=== PATIENT | female | born 1985 | race Two or more races ===

== ENCOUNTER 2017-01-21 09:29 | Inpatient (IN) | payer SELFPAY ==
[~2017-01-21] VITALS: Ht 149.9 cm; Wt 63.5 kg
[2017-01-21] MEDS ORDERED: OXYTOCIN 30 UNIT/500 ML PREMIX 500 ML IV PRN ×2 (12:30→18:00)
[2017-01-21] MEDS ORDERED: 0.9 % SODIUM CHLORIDE 10 ML DISP.SYRIN. IV PRN ×2 (12:30→18:00)
[2017-01-21] MEDS ORDERED: TERBUTALINE 1 MG/ML VIAL. SQ PRN (12:30)
[2017-01-21] MEDS ORDERED: LIDOCAINE 1% PF 30 ML VIAL. INJ PRN (12:30)
[2017-01-21] MEDS ORDERED: IBUPROFEN 600 MG TABLET. PO PRN (12:30)
[2017-01-21 12:35] VITALS: BP 107/71
[2017-01-21] MEDS: IV RINGERS,LACTATED 1000ML 1,000 ML IV SCH ×2 (13:45→16:39)
[2017-01-21 14:17] LABS: BASO # 0.1 x10^3/uL (0.0-0.2); BASO % 1 % (0-3); EOS % 0 % (0-3); HEMATOCRIT 37.6 % (36.0-47.0); HEMOGLOBIN 12.7 g/dL (12.0-15.5); LYMPH # 1.4 x10^3/uL (1.0-4.8); LYMPH % 14 % (24-48); MEAN CORPUSCULAR HEMOGLOBIN 28 pg (25-35); MEAN CORPUSCULAR HGB CONC 34 g/dL (31-37); MEAN CORPUSCULAR VOLUME 84 fL (79-100); MONO % 4 % (0-9); NEUT % 82 % (31-73); PLATELET COUNT 170 x10^3/uL (140-400); RED BLOOD COUNT 4.47 x10^6/uL (3.50-5.40); RED CELL DISTRIBUTION WIDTH 14.2 % (11.5-14.5); WHITE BLOOD COUNT 9.7 x10^3/uL (4.0-11.0)
--- NOTE | 2017-01-21 15:30 | PDOC1 ---
OB - History Hx of Present Care: Good Care Ultrasounds: Normal mid trimester US Obstetrical Complications: None Medical Complications: None Past Family/Social History * Past Medical, Surgical, Family and Obstetric Histories reviewed from chart. Rubella: Immune RPR/VDRL: Negative GBS Status: Negative HBsAG: Negative OB - Chief Complaint & HPI Date of Admission: Date of Admission: Jan 21, 2017 at 09:29 Chief Complaint/History : 3 Para: 2 EGA: 37 Reason for admission: active labor Admission Nurse Assessment Rev: Yes Problems: OB - Admission Exam Physical Exam Vitals: VS - Last 72 Hours, by Label Date Time Temp Pulse Resp B/P Pulse Ox O2 Delivery O2 Flow Rate FiO2 01/21/17 12:35 98.0 67 20 107/71 98.0 HEENT: Normal Heart: Regular Rate Lungs: Clear Abdomen: Gravid, Non tender, Soft Extremities: Edema Reflexes: Normal Cervical Dilatation: 3cm Effacement: 100% Station: -2 Membranes: Intact Heart Rate: Normal Accelerations: Accelerations Present Decelerations: No decelerations Contractions on Admission: 6-10 Minutes Apart Intensity: Mild Text A: 37 wks IUP Active labor P: Admit for labor management. DOROTHEA DONATO Jr, MD Jan 21, 2017 15:29
[2017-01-21] MEDS ORDERED: OXYTOCIN 30 UNIT/500 ML PREMIX 500 ML IV ONE (16:00)
[2017-01-21] MEDS ORDERED: L&D EPIDURAL CASSETTE 100 ML EP ONE (16:16)
[2017-01-21] MEDS ORDERED: ROPIVacaine 0.2% IN 0.9%NACL PF 40 MG/20 ML DISP.SYRIN. ONE ×2 (16:16→16:30)
[2017-01-21] MEDS ORDERED: ONDANSETRON PF 4 MG/2 ML VIAL. IV PRN (17:00)
[2017-01-21] MEDS ORDERED: EPHEDRINE PF IN SALINE 50 MG/5 ML DISP.SYRIN. IV PRN (17:00)
[2017-01-21] MEDS ORDERED: NALOXONE 0.4 MG/ML VIAL. IV PRN (17:00)
[2017-01-21] MEDS ORDERED: FENTANYL PF 100 MCG/2 ML VIAL. EPI ONE (17:15)
[2017-01-21] MEDS ORDERED: ROPIVacaine 0.2% PF 10 ML VIAL. EPI ONE (17:15)
--- NOTE | 2017-01-21 17:52 | PDOC ---
VAGINAL DELIVERY DATE DATE: 01/21/17 TIME: 17:50 : 3 Para: 3 EGA: 37 VAGINAL DELIVERY: VTX VACCUM ASSISTED: No PLACENTA: Spontaneous 8/9 SEX: Male WEIGHT Weight [3100 gm ] Nuchal Cord: No Amniotic Fluid: Clear PAIN: Epidural EPISIOTOMY: No EXTENSION: No EBL 300 ml COMPLICATIONS none CONDITION pt. stable ADDITIONAL NOTES true knot x 1 Signs of Intrauterine Infectio: None Shoulder Dystocia: No Problems: DOROTHEA DONATO Jr, MD Jan 21, 2017 17:52
[2017-01-21] MEDS ORDERED: ZOLPIDEM 5 MG TABLET. PO PRN (18:00)
[2017-01-21] MEDS ORDERED: SIMETHICONE 80 MG TAB.CHEW PO PRN (18:00)
[2017-01-21] MEDS ORDERED: MAGNESIUM HYDROXIDE 2,400 MG/30 ML ORAL.SUSP. PO PRN (18:00)
[2017-01-21] MEDS ORDERED: HYDROCORTISONE 1% TOPICAL OINTMENT 30GM TUBE. TP PRN (18:00)
[2017-01-21] MEDS ORDERED: DOCUSATE SODIUM 100 MG CAPSULE PO PRN (18:00)
[2017-01-21] MEDS ORDERED: IBUPROFEN 800 MG TABLET. PO PRN (18:00)
[2017-01-21] MEDS ORDERED: MAG HYDROX/ALUMINUM HYD/SIMETH 30 ML ORAL.SUSP PO PRN (18:00)
[2017-01-21] MEDS ORDERED: PHENYLEPH/MINERAL OIL/PETROLAT RECTAL OINTMENT 28GM TUBE. RC PRN (18:00)
[2017-01-21] MEDS ORDERED: DIPHENHYDRAMINE HCL 25 MG CAPSULE PO PRN (18:00)
[2017-01-21] MEDS ORDERED: MMR per PROTOCOL. MC PRN (18:00)
[2017-01-21] MEDS ORDERED: BENZOCAINE 20% TOPICAL AEROSOL SPRAY 57GM CAN. TP PRN (18:00)
[2017-01-21] MEDS ORDERED: ACETAMINOPHEN 325 MG TABLET. PO PRN (18:00)
[2017-01-21] MEDS ORDERED: OXYCODONE/APAP 5/325 TABLET. PO PRN (18:00)
[2017-01-21 21:31] VITALS: BP 98/58
[2017-01-21 22:03] VITALS: BP 110/53
[2017-01-22 00:56] VITALS: BP 104/66
[2017-01-22 05:37] VITALS: BP 99/64
[2017-01-22 06:11] LABS: BASO % 1 % (0-3); EOS % 1 % (0-3); HEMATOCRIT 39.1 % (36.0-47.0); HEMOGLOBIN 13.1 g/dL (12.0-15.5); LYMPH # 2.3 x10^3/uL (1.0-4.8); LYMPH % 24 % (24-48); MEAN CORPUSCULAR HEMOGLOBIN 29 pg (25-35); MEAN CORPUSCULAR HGB CONC 33 g/dL (31-37); MEAN CORPUSCULAR VOLUME 85 fL (79-100); MONO % 7 % (0-9); NEUT % 68 % (31-73); PLATELET COUNT 184 x10^3/uL (140-400); RED BLOOD COUNT 4.58 x10^6/uL (3.50-5.40); RED CELL DISTRIBUTION WIDTH 14.2 % (11.5-14.5); WHITE BLOOD COUNT 9.8 x10^3/uL (4.0-11.0)
[2017-01-22] MEDS ORDERED: FERROUS SULFATE 325 MG TABLET PO SCH (08:00)
[2017-01-22 10:30] VITALS: BP 105/72
--- NOTE | 2017-01-22 11:47 | PDOC ---
OB Progress Note Date of Service 01/22/17 Time of Evaluation 1145 Notes Pt. feeling well. Pain controlled. Breast feeding. Lochia minimal. Lab Laboratory Tests Test 01/21/17 13:40 01/22/17 05:50 White Blood Count 9.7x10^3/uL (4.0-11.0) 9.8x10^3/uL (4.0-11.0) Red Blood Count 4.47x10^6/uL (3.50-5.40) 4.58x10^6/uL (3.50-5.40) Hemoglobin 12.7g/dL (12.0-15.5) 13.1g/dL (12.0-15.5) Hematocrit 37.6% (36.0-47.0) 39.1% (36.0-47.0) Mean Corpuscular Volume 84fL (79-100) 85fL (79-100) Mean Corpuscular Hemoglobin 28pg (25-35) 29pg (25-35) Mean Corpuscular Hemoglobin Concent 34g/dL (31-37) 33g/dL (31-37) Red Cell Distribution Width 14.2% (11.5-14.5) 14.2% (11.5-14.5) Platelet Count 170x10^3/uL (140-400) 184x10^3/uL (140-400) Neutrophils (%) (Auto) 82% (31-73) 68% (31-73) Lymphocytes (%) (Auto) 14% (24-48) 24% (24-48) Monocytes (%) (Auto) 4% (0-9) 7% (0-9) Eosinophils (%) (Auto) 0% (0-3) 1% (0-3) Basophils (%) (Auto) 1% (0-3) 1% (0-3) Neutrophils # (Auto) 7.9x10^3uL (1.8-7.7) 6.7x10^3uL (1.8-7.7) Lymphocytes # (Auto) 1.4x10^3/uL (1.0-4.8) 2.3x10^3/uL (1.0-4.8) Monocytes # (Auto) 0.3x10^3/uL (0.0-1.1) 0.6x10^3/uL (0.0-1.1) Eosinophils # (Auto) 0.0x10^3/uL (0.0-0.7) 0.1x10^3/uL (0.0-0.7) Basophils # (Auto) 0.1x10^3/uL (0.0-0.2) 0.0x10^3/uL (0.0-0.2) Laboratory Tests Test 01/21/17 13:40 01/22/17 05:50 White Blood Count 9.7x10^3/uL (4.0-11.0) 9.8x10^3/uL (4.0-11.0) Red Blood Count 4.47x10^6/uL (3.50-5.40) 4.58x10^6/uL (3.50-5.40) Hemoglobin 12.7g/dL (12.0-15.5) 13.1g/dL (12.0-15.5) Hematocrit 37.6% (36.0-47.0) 39.1% (36.0-47.0) Mean Corpuscular Volume 84fL (79-100) 85fL (79-100) Mean Corpuscular Hemoglobin 28pg (25-35) 29pg (25-35) Mean Corpuscular Hemoglobin Concent 34g/dL (31-37) 33g/dL (31-37) Red Cell Distribution Width 14.2% (11.5-14.5) 14.2% (11.5-14.5) Platelet Count 170x10^3/uL (140-400) 184x10^3/uL (140-400) Neutrophils (%) (Auto) 82% (31-73) 68% (31-73) Lymphocytes (%) (Auto) 14% (24-48) 24% (24-48) Monocytes (%) (Auto) 4% (0-9) 7% (0-9) Eosinophils (%) (Auto) 0% (0-3) 1% (0-3) Basophils (%) (Auto) 1% (0-3) 1% (0-3) Neutrophils # (Auto) 7.9x10^3uL (1.8-7.7) 6.7x10^3uL (1.8-7.7) Lymphocytes # (Auto) 1.4x10^3/uL (1.0-4.8) 2.3x10^3/uL (1.0-4.8) Monocytes # (Auto) 0.3x10^3/uL (0.0-1.1) 0.6x10^3/uL (0.0-1.1) Eosinophils # (Auto) 0.0x10^3/uL (0.0-0.7) 0.1x10^3/uL (0.0-0.7) Basophils # (Auto) 0.1x10^3/uL (0.0-0.2) 0.0x10^3/uL (0.0-0.2) Medications Current Medications Sodium Chloride 3 ml 3 ml QSHIFT PRN IV AFTER MEDS AND BLOOD DRAWS; Start at 12:30 Lactated Ringer's (Iv Lactated Ringers) 1,000 ml @ 125 mls/hr Q8H IV Last administered on 01/21/17 16:39; Start 01/21/17 at 12:21 Terbutaline Sulfate (Brethine) 0.25 mg 1X PRN PRN SQ SEE COMMENTS; Start at 12:30; Stop 01/22/17 at 12:29 Lidocaine HCl 30 ml 30 ml 1X PRN PRN INJ SEE COMMENTS; Start 01/21/17 at 12:30; Stop 01/23/17 at 12:29 Oxytocin/Sodium Chloride (Oxytocin Premix Infusion) 500 ml @ 0 mls/hr CONT PRN PRN IV Post delivery bleeding; Start 01/21/17 at 12:30 Ibuprofen 600 mg 600 mg PRN Q6HRS PRN PO PAIN; Start 01/21/17 at 12:30 Oxytocin/Sodium Chloride 500 ml @ 0 mls/hr 1X ONCE IV Last administered on 01/21 16:40; Start 01/21/17 at 16:00; Stop 01/21/17 at 16:01; Status DC Ropivacaine/ Fentanyl/NS ([id number]-FM 3 Mcg-0.1%) 100 ml @ As Directed STK-MED ONCE EP Last administered on 01/21/17 16:31; Start 01/21/17 at 16:16; Stop 01/21/17 at 16:17; Status DC Ropivacaine 40 mg STK-MED ONCE .ROUTE Last administered on 01/21/17 16:32; Start 01/21/17 at 16:16; Stop 01/21/17 at 16:17; Status DC Ropivacaine 40 mg STK-MED ONCE .ROUTE ; Start 01/21/17 at 16:30; Stop 01/21/17 at 16:31; Status DC Ephedrine Sulfate 10 mg PRN Q2MIN PRN IV IF SBP<90; Start 01/21/17 at 17:00 Naloxone HCl (Narcan) 0.04 mg PRN Q1MIN PRN IV SEE COMMENTS; Start 01/21/17 at 17:00 Fentanyl Citrate (Fentanyl 2ml Vial) 100 mcg 1X ONCE EPI ; Start 01/21/17 at 17: 15; Stop 01/21/17 at 17:16; Status DC Ondansetron HCl (Zofran) 4 mg PRN Q6HRS PRN IV NAUSEA/VOMITING; Start 01/21/17 at 17:00 Ropivacaine (Naropin 0.2%) 20 ml 1X ONCE EPI ; Start 01/21/17 at 17:15; Stop 01/21/17 at 17:16; Status DC Sodium Chloride 10 ml 10 ml QSHIFT PRN IV AFTER MEDS AND BLOOD DRAWS; Start 01/21/17 at 18:00 Oxytocin/Sodium Chloride (Oxytocin Premix Infusion) 500 ml @ 62.5 mls/hr CONT PRN IV SEE I/O RECORD; Start 01/21/17 at 18:00; Stop 01/22/17 at 01:59; Status DC Acetaminophen (Tylenol) 650 mg PRN Q6HRS PRN PO MILD PAIN / TEMP; Start at 18:00 Ibuprofen (Motrin) 800 mg PRN Q8HRS PRN PO INFLAMMATION/PAIN PREVENTION Last administered on 01/22/17 08:45; Start 01/21/17 at 18:00 Docusate Sodium (Colace) 100 mg PRN BID PRN PO CONSTIPATION; Start 01/21/17 at 18:00 Magnesium Hydroxide (Milk Of Magnesia) 2,400 mg PRN DAILY PRN PO CONSTIPATION; Start 01/21/17 at 18:00 Al Hydrox/Mg Hydrox/Simethicone (Mylanta Plus Xs) 30 ml PRN Q4HRS PRN PO HEARTBURN / GAS; Start 01/21/17 at 18:00 Simethicone (Gas-X) 80 mg PRN AFTMEALHC PRN PO GAS / BLOATING; Start 01/21/17 at 18:00 Diphenhydramine HCl (Benadryl) 25 mg PRN Q6HRS PRN PO ITCHING; Start 01/21/17 at 18:00 Benzocaine (Americaine) 1 spray PRN QID PRN TP TOPICAL PAIN; Start 01/21/17 at 18:00 Phenyleph/Shark Oil/Min Oil/Petrol (Preparation H) 1 kaylan PRN QID PRN RC RECTAL PAIN; Start 01/21/17 at 18:00 Hydrocortisone (Cortaid) 1 kaylan PRN QID PRN TP PERINEAL PAIN; Start 01/21/17 at 18:00 Ferrous Sulfate (Feosol) 325 mg BIDWMEALS PO ; Start 01/22/17 at 08:00; Stop 01/22 at 08:00; Status DC Zolpidem Tartrate (Ambien) 5 mg PRN QHS PRN PO INSOMNIA, MAY REPEAT X1; Start 01/21/17 at 18:00 Info (Do NOT chart on this placeholder) 1 ea 1X PRN PRN MC SEE COMMENTS; Start 01/21/17 at 18:00 Info (Do NOT chart on this placeholder) 1 ea 1X PRN PRN MC SEE COMMENTS; Start 01/21/17 at 18:00 Oxycodone/ Acetaminophen (Percocet 5/325) 2 tab PRN Q4HRS PRN PO MODERATE PAIN , SEVERE PAIN; Start 01/21/17 at 18:00 Exam Abd: soft, non tender, fundus firm Assessment PPD#1 s/p Plan of Care: Continue current Tx, Mgmt DOROTHEA DONATO Jr, MD Jan 22, 2017 11:47
[2017-01-22 14:50] VITALS: BP 104/71
[2017-01-22 21:30] VITALS: BP 99/70
[2017-01-23 05:33] VITALS: BP 92/53
--- NOTE | 2017-01-23 07:28 | PDOC ---
OB Progress Note Date of Service 01/23/17 Time of Evaluation 0794 Notes Pt. feeling well. No complaints. Lab Laboratory Tests Test 01/21/17 13:40 01/22/17 05:50 White Blood Count 9.7x10^3/uL (4.0-11.0) 9.8x10^3/uL (4.0-11.0) Red Blood Count 4.47x10^6/uL (3.50-5.40) 4.58x10^6/uL (3.50-5.40) Hemoglobin 12.7g/dL (12.0-15.5) 13.1g/dL (12.0-15.5) Hematocrit 37.6% (36.0-47.0) 39.1% (36.0-47.0) Mean Corpuscular Volume 84fL (79-100) 85fL (79-100) Mean Corpuscular Hemoglobin 28pg (25-35) 29pg (25-35) Mean Corpuscular Hemoglobin Concent 34g/dL (31-37) 33g/dL (31-37) Red Cell Distribution Width 14.2% (11.5-14.5) 14.2% (11.5-14.5) Platelet Count 170x10^3/uL (140-400) 184x10^3/uL (140-400) Neutrophils (%) (Auto) 82% (31-73) 68% (31-73) Lymphocytes (%) (Auto) 14% (24-48) 24% (24-48) Monocytes (%) (Auto) 4% (0-9) 7% (0-9) Eosinophils (%) (Auto) 0% (0-3) 1% (0-3) Basophils (%) (Auto) 1% (0-3) 1% (0-3) Neutrophils # (Auto) 7.9x10^3uL (1.8-7.7) 6.7x10^3uL (1.8-7.7) Lymphocytes # (Auto) 1.4x10^3/uL (1.0-4.8) 2.3x10^3/uL (1.0-4.8) Monocytes # (Auto) 0.3x10^3/uL (0.0-1.1) 0.6x10^3/uL (0.0-1.1) Eosinophils # (Auto) 0.0x10^3/uL (0.0-0.7) 0.1x10^3/uL (0.0-0.7) Basophils # (Auto) 0.1x10^3/uL (0.0-0.2) 0.0x10^3/uL (0.0-0.2) Medications Current Medications Sodium Chloride 3 ml 3 ml QSHIFT PRN IV AFTER MEDS AND BLOOD DRAWS; Start at 12:30 Lactated Ringer's (Iv Lactated Ringers) 1,000 ml @ 125 mls/hr Q8H IV Last administered on 01/21/17 16:39; Start 01/21/17 at 12:21 Terbutaline Sulfate (Brethine) 0.25 mg 1X PRN PRN SQ SEE COMMENTS; Start at 12:30; Stop 01/22/17 at 12:29; Status DC Lidocaine HCl 30 ml 30 ml 1X PRN PRN INJ SEE COMMENTS; Start 01/21/17 at 12:30; Stop 01/23/17 at 12:29 Oxytocin/Sodium Chloride (Oxytocin Premix Infusion) 500 ml @ 0 mls/hr CONT PRN PRN IV Post delivery bleeding; Start 01/21/17 at 12:30 Ibuprofen 600 mg 600 mg PRN Q6HRS PRN PO PAIN; Start 01/21/17 at 12:30 Oxytocin/Sodium Chloride 500 ml @ 0 mls/hr 1X ONCE IV Last administered on 01/21 16:40; Start 01/21/17 at 16:00; Stop 01/21/17 at 16:01; Status DC Ropivacaine/ Fentanyl/NS ([id number] 3 Mcg-0.1%) 100 ml @ As Directed STK-MED ONCE EP Last administered on 01/21/17 16:31; Start 01/21/17 at 16:16; Stop 01/21/17 at 16:17; Status DC Ropivacaine 40 mg STK-MED ONCE .ROUTE Last administered on 01/21/17 16:32; Start 01/21/17 at 16:16; Stop 01/21/17 at 16:17; Status DC Ropivacaine 40 mg STK-MED ONCE .ROUTE ; Start 01/21/17 at 16:30; Stop 01/21/17 at 16:31; Status DC Ephedrine Sulfate 10 mg PRN Q2MIN PRN IV IF SBP<90; Start 01/21/17 at 17:00 Naloxone HCl (Narcan) 0.04 mg PRN Q1MIN PRN IV SEE COMMENTS; Start 01/21/17 at 17:00 Fentanyl Citrate (Fentanyl 2ml Vial) 100 mcg 1X ONCE EPI ; Start 01/21/17 at 17: 15; Stop 01/21/17 at 17:16; Status DC Ondansetron HCl (Zofran) 4 mg PRN Q6HRS PRN IV NAUSEA/VOMITING; Start 01/21/17 at 17:00 Ropivacaine (Naropin 0.2%) 20 ml 1X ONCE EPI ; Start 01/21/17 at 17:15; Stop 01/21/17 at 17:16; Status DC Sodium Chloride 10 ml 10 ml QSHIFT PRN IV AFTER MEDS AND BLOOD DRAWS; Start 01/21/17 at 18:00 Oxytocin/Sodium Chloride (Oxytocin Premix Infusion) 500 ml @ 62.5 mls/hr CONT PRN IV SEE I/O RECORD; Start 01/21/17 at 18:00; Stop 01/22/17 at 01:59; Status DC Acetaminophen (Tylenol) 650 mg PRN Q6HRS PRN PO MILD PAIN / TEMP; Start at 18:00 Ibuprofen (Motrin) 800 mg PRN Q8HRS PRN PO INFLAMMATION/PAIN PREVENTION Last administered on 01/22/17t 08:45; Start 01/21/17 at 18:00 Docusate Sodium (Colace) 100 mg PRN BID PRN PO CONSTIPATION; Start 01/21/17 at 18:00 Magnesium Hydroxide (Milk Of Magnesia) 2,400 mg PRN DAILY PRN PO CONSTIPATION; Start 01/21/17 at 18:00 Al Hydrox/Mg Hydrox/Simethicone (Mylanta Plus Xs) 30 ml PRN Q4HRS PRN PO HEARTBURN / GAS; Start 01/21/17 at 18:00 Simethicone (Gas-X) 80 mg PRN AFTMEALHC PRN PO GAS / BLOATING; Start 01/21/17 at 18:00 Diphenhydramine HCl (Benadryl) 25 mg PRN Q6HRS PRN PO ITCHING; Start 01/21/17 at 18:00 Benzocaine (Americaine) 1 spray PRN QID PRN TP TOPICAL PAIN; Start 01/21/17 at 18:00 Phenyleph/Shark Oil/Min Oil/Petrol (Preparation H) 1 kaylan PRN QID PRN RC RECTAL PAIN; Start 01/21/17 at 18:00 Hydrocortisone (Cortaid) 1 kaylan PRN QID PRN TP PERINEAL PAIN; Start 01/21/17 at 18:00 Ferrous Sulfate (Feosol) 325 mg BIDWMEALS PO ; Start 01/22/17 at 08:00; Stop 01/22 at 08:00; Status DC Zolpidem Tartrate (Ambien) 5 mg PRN QHS PRN PO INSOMNIA, MAY REPEAT X1; Start 01/21/17 at 18:00 Info (Do NOT chart on this placeholder) 1 ea 1X PRN PRN MC SEE COMMENTS; Start 01/21/17 at 18:00 Info (Do NOT chart on this placeholder) 1 ea 1X PRN PRN MC SEE COMMENTS; Start 01/21/17 at 18:00 Oxycodone/ Acetaminophen (Percocet 5/325) 2 tab PRN Q4HRS PRN PO MODERATE PAIN , SEVERE PAIN; Start 01/21/17 at 18:00 Exam Abd: soft, non tender, fundus firm Assessment PPD#2 s/p Plan of Care: See new orders (D/c home.) DOROTHEA DONATO Jr, MD Jan 23, 2017 07:28
[2017-01-23] MEDS ORDERED: IBUP-1060 PO (07:29)
--- NOTE | 2017-01-23 07:29 | DISCH ---
DISCHARGE INSTRUCTIONS Condition on Discharge Condition on Discharge: Stable Activity After Discharge Activity Instructions for Disc: Activity as tolerated Lifting Instructions after Dis: No heavy lifting Driving Instructions after Dis: Do not drive today Diet after Discharge Diet after Discharge: Regular Contacting the DRValdo after DC Call your doctor for: Concerns you may have Follow-Up Follow up with: Will in 6 wks. DOROTHEA DONATO Jr, MD Jan 23, 2017 07:28
[2017-01-23 11:50] VITALS: BP 107/65
== END 2017-01-23 12:25 | disposition home or self-care (01) | DRG 775 ==
LOC: OBSVTOIN 09:29 → 3 SO LND 09:29 → 3 NORTH 01-22 00:23
PROVIDERS: ADMIT Obstetrics & Gynecology; ATTEND Obstetrics & Gynecology
PROC: 10E0XZZ Delivery of Products of Conception, External Approach (ICD-10-PCS; principal; 2017-01-21)
PROC: 3E0S3CZ (ICD-10-PCS; 2017-01-21)
PROC: 00HU33Z Insertion of Infusion Device into Spinal Canal, Percutaneous Approach (ICD-10-PCS; 2017-01-21)
DX: O80 Encounter for full-term uncomplicated delivery (principal); Z37.0 Single live birth; Z3A.37 37 weeks gestation of pregnancy
CPT/HCPCS: 36415; 85027; 86593; 86850; 86900; 86901; J2590; J2795; J7120